=== PATIENT | female | born 1975 | race Caucasian/White ===

== ENCOUNTER 2023-04-08 21:21 | Emergency (ER) | payer SELFPAY ==
[2023-04-08 21:30] VITALS: BP 147/73; PULSE 72; RESP 18; TEMP 98.3; BMI 20.3
== END 2023-04-08 23:15 | disposition home or self-care (01) ==
LOC: JER 21:21 → JERFT 21:21
DX: S69.91XA Unspecified injury of right wrist, hand and finger(s), initial encounter (principal); M79.641 Pain in right hand; X58.XXXA Exposure to other specified factors, initial encounter
CPT/HCPCS: 73130-TC-RT-FY; 99283-25

== ENCOUNTER 2024-04-05 21:05 | Emergency (ER) | payer OTHER ==
[2024-04-05 21:13] VITALS: BP 140/79; PULSE 69; RESP 18; TEMP 99.1; BMI 20.3
[2024-04-05 21:32] LABS: PH,URINE 6.5 (5.0-8.0); URINE APPEARANCE CLEAR; URINE BILIRUBIN NEGATIVE (NEGATIVE); URINE COLOR ORANGE; URINE GLUCOSE (UA) NEGATIVE (NEGATIVE); URINE KETONE NEGATIVE (NEGATIVE); URINE LEUK ESTERASE 3+ (NEGATIVE); URINE NITRITE NEGATIVE (NEGATIVE); URINE PROTEIN 2+ (NEGATIVE); URINE UROBILINOGEN 0.2 mg/dL (0.2-1.0)
[2024-04-05 21:43] LABS: HCG,QUALITATIVE URINE Negative
[2024-04-05] MEDS ORDERED: KETOROLAC TROMETHAMINE 30 MG/1 ML VIAL ONE (22:11)
[2024-04-05 22:13] LABS: EPI CELLS 7.1 /uL (0-25.1); HYALINE CASTS 4.09 /uL (0-3.1); URINE BACTERIA 740.8 /uL (0-1359); URINE RBC 44.7 /uL (0-23.9); URINE WBC 929.2 /uL (0-25.8)
[2024-04-05] MEDS: KETOROLAC TROMETHAMINE 30 MG/1 ML VIAL IM ONE (22:13)
== END 2024-04-05 22:29 | disposition home or self-care (01) ==
LOC: JERFT 21:05
PROC: 3E0133Z Introduction of Anti-inflammatory into Subcutaneous Tissue, Percutaneous Approach (ICD-10-PCS; principal; 2024-04-05)
DX: N30.01 Acute cystitis with hematuria (principal); R30.0 Dysuria; R35.0 Frequency of micturition
CPT/HCPCS: 74176-TC; 81003; 84703; 87086; 87186; 99284-25